=== PATIENT | male | born 1960 | race Caucasian/White ===

== ENCOUNTER 2021-06-09 02:16 | Emergency (ER) | payer BC ==
[~2021-06-09] VITALS: Ht 180.3 cm; Wt 85.0 kg
[2021-06-09 07:50] LABS: BASOPHILS # (AUTO) 0.1 X10'3 (0-0.2); BASOPHILS % (AUTO) 0.6 % (0-1); EOSINOPHILS # (AUTO) 0.1 X10'3 (0-0.9); HEMATOCRIT 44.8 % (42.0-52.0); HEMOGLOBIN 15.1 g/dl (14.0-17.9); LYMPHOCYTES % (AUTO) 21.9 % (21-51); MEAN CORPUSCULAR HEMOGLOBIN 32.1 PG (27.0-31.0); MEAN CORPUSCULAR HGB CONC 33.7 g/dL (33.0-36.5); MEAN CORPUSCULAR VOLUME 95.1 FL (78-98); MEAN PLATELET VOLUME 8.4 FL (7.4-10.4); MONOCYTES # (AUTO) 0.7 X10'3 (0-0.9); MONOCYTES % (AUTO) 7.2 % (2-12); NEUTROPHILS # (AUTO) 6.4 X10'3 (1.8-7.7); NEUTROPHILS % (AUTO) 69.3 % (42-75); PLATELET COUNT 276 X10'3 (140-440); RED BLOOD COUNT 4.71 X10'6 (4.70-6.10); RED CELL DISTRIBUTION WIDTH 13.7 % (11.5-14.5); WHITE BLOOD COUNT 9.2 X10'3 (4.5-11.0)
[2021-06-09 07:56] LABS: ALANINE AMINOTRANSFERASE 30 U/L (12-78); ALBUMIN/GLOBULIN RATIO 1.3 (1.1-1.5); ALKALINE PHOSPHATASE 93 IU/L (46-116); ANION GAP 12 (8-16); ASPARTATE AMINO TRANSFERASE 21 U/L (10-37); BILIRUBIN,TOTAL 0.4 MG/DL (0.1-1.0); BLOOD UREA NITROGEN 11 MG/DL (7-18); BUN/CREATININE RATIO 13.4 (5.4-32.0); CALCIUM 8.9 MG/DL (8.5-10.1); CHLORIDE 106 MMOL/L (99-107); CREATININE 0.82 MG/DL (0.60-1.10); GLUCOSE 109 MG/DL (70-104); LIPASE 112 U/L (73-393); POTASSIUM 3.9 MMOL/L (3.5-5.1); SODIUM 142 MMOL/L (135-145); TOTAL CARBON DIOXIDE 24.3 MMOL/L (24-32); TOTAL PROTEIN 7.2 G/DL (6.4-8.2); eGFR > 90 ML/MIN
[2021-06-09] MEDS ORDERED: FAMO40TA59 PO (08:10)
[2021-06-09 08:24] VITALS: BP 139/100
== END 2021-06-09 08:28 | disposition home or self-care (01) ==
LOC: ER 02:17
DX: R10.13 Epigastric pain (principal); F17.210 Nicotine dependence, cigarettes, uncomplicated
CPT/HCPCS: 36415; 80053; 83690; 85025; 93005; 99284

== ENCOUNTER 2023-04-15 17:15 | Emergency (ER) | payer BC ==
[~2023-04-15 17:15] MED LIST: FAMO40TA59 PO; epiNEPHrine 0.1mg/ml 10ml syringe ONE; etomidate 2mg/ml inj. ONE; sod chloride 0.9% 10ml flush syringe IV ONE; sodium bicarbonate (8.4%) 1 mEq/ml syringe ONE
--- NOTE | 2023-04-15 17:16 | NUR ---
PT ARRIVED VIA EMS TO ER 6; PULSE CHECK WITH US BY DR JACKSON, NO PULSE NOTED 1722: 0.1MG EPI GIVEN IV 172: PT INTUBATED WITH 8.0 ETT, 25CM AT THE TEETH 20MG ETOMIDATE GIVEN IV 172: PULSE CHECK VIA US BY DR WOODS; TRACE CARDIAC PERFUSION NOTED. 1730: ETT PULLED BACK 1CM TO 24CM AT THE TEETH
--- NOTE | 2023-04-15 17:34 | NUR ---
EPI 0.1MG GIVEN IV. 1743 NOREPI GIVEN AT 1743 FOR BP 40/18
[2023-04-15 17:40] VITALS: BP 38/19
[2023-04-15] MEDS ORDERED: heparin 10,000 units/1 ML INJ IV ONE (17:40)
[2023-04-15] MEDS ORDERED: heparin 25,000 UNIT/250ml bag 250 ML IV PRN (17:40)
[2023-04-15] MEDS ORDERED: NORepinephrine 8mg/ 250ml NS 250 ML IV SCH (17:40)
[2023-04-15] MEDS ORDERED: heparin 10,000 units/1 ML INJ IV PRN (17:40)
[2023-04-15 17:50] LABS: BASOPHILS # (AUTO) 0.1 X10'3 (0-0.2); BASOPHILS % (AUTO) 0.8 % (0-1); EOSINOPHILS # (AUTO) 0.2 X10'3 (0-0.9); EOSINOPHILS % (AUTO) 1.9 % (0-6); HEMATOCRIT 29.3 % (42.0-52.0); HEMOGLOBIN 8.9 g/dl (14.0-17.9); LYMPHOCYTES # (AUTO) 4.5 X10'3 (1.1-4.8); LYMPHOCYTES % (AUTO) 45.6 % (21-51); MEAN CORPUSCULAR HEMOGLOBIN 31.3 PG (27.0-31.0); MEAN CORPUSCULAR HGB CONC 30.5 g/dL (33.0-36.5); MEAN CORPUSCULAR VOLUME 102.7 FL (78-98); MEAN PLATELET VOLUME 8.5 FL (7.4-10.4); MONOCYTES # (AUTO) 0.5 X10'3 (0-0.9); MONOCYTES % (AUTO) 5.3 % (2-12); NEUTROPHILS # (AUTO) 4.5 X10'3 (1.8-7.7); NEUTROPHILS % (AUTO) 46.4 % (42-75); PLATELET COUNT 152 X10'3 (140-440); RED BLOOD COUNT 2.86 X10'6 (4.70-6.10); RED CELL DISTRIBUTION WIDTH 15.1 % (11.5-14.5); WHITE BLOOD COUNT 9.8 X10'3 (4.5-11.0)
[2023-04-15 18:00] VITALS: BP 41/16
[2023-04-15] MEDS ORDERED: midazolam 100mg in NS 100ml 100 ML IV PRN (18:00)
--- NOTE | 2023-04-15 18:02 | NUR ---
PER MD HOLD THE HEPARIN DRIP AT THIS TIME ,ADMIN WHEN THE X RAY RESULTS ARE BACK.
--- NOTE | 2023-04-15 18:06 | NUR ---
INFORMED THE MD THAT PT RECEIVED TOTAL OF 3L N.S IV FLUID DURING CODE.
[2023-04-15 18:17] LABS: ALANINE AMINOTRANSFERASE 188 U/L (12-78); ALBUMIN 2.1 G/DL (3.4-5.0); ALBUMIN/GLOBULIN RATIO 1.1 (1.1-1.5); ALKALINE PHOSPHATASE 84 IU/L (46-116); ANION GAP 28 (8-16); ASPARTATE AMINO TRANSFERASE 183 U/L (10-37); BILIRUBIN,TOTAL 0.1 MG/DL (0.1-1.0); BLOOD UREA NITROGEN 12 MG/DL (7-18); BUN/CREATININE RATIO 7.7 (10.0-20.0); CALCIUM 8.7 MG/DL (8.5-10.1); CHLORIDE 109 MMOL/L (99-107); CREATININE 1.55 MG/DL (0.60-1.10); GLUCOSE 211 MG/DL (70-104); POTASSIUM 4.5 MMOL/L (3.5-5.1); SODIUM 149 MMOL/L (135-145); eGFR 46 ML/MIN
[2023-04-15 18:20] LABS: TOTAL CARBON DIOXIDE 11.9 MMOL/L (24-32)
[2023-04-15 18:35] LABS: APTT 92 SECONDS (22-32)
--- NOTE | 2023-04-15 18:39 | NUR ---
COMPRESSIONS 1838 EPI 1839 BICARB 1840 BICARB 1841
[2023-04-15 18:42] LABS: MAGNESIUM 2.6 MG/DL (1.5-2.4)
--- NOTE | 2023-04-15 18:46 | NUR ---
REGISTRATION FOUND A CART ON PT DATED [birth year]09[birth year] WITH NEXT OF KIN LISTED "LORI" PHONE# [phone]. ATTEMPTED TO CALL [facility], UNABLE TO LEAVE A MESSAGE DUE TO VOICE MAIL BOX BEING FULL. DR JACKSON NOTIFIED
[2023-04-15] MEDS ORDERED: vasopressin inj. 40 UNIT in normal saline 50ml IV soln 38 ML IV SCH (18:50)
[2023-04-15] MEDS ORDERED: vasopressin inj. 40 UNIT in dextrose 5%-water 50ml 38 ML IV SCH (18:50)
[2023-04-15] MEDS ORDERED: sodium bicarbonate (8.4%) inj. 1 MEQ/ML ML ONE ×2 (18:54→18:55)
[2023-04-15 19:01] LABS: ETHANOL < 0.010 GM/DL (0.0-0.010)
[2023-04-15 19:10] LABS: NUCLEATED RED BLOOD CELLS 3 /100WBC (0-0); PLATELET ESTIMATE NORMAL; TOTAL CELLS COUNTED 100
--- NOTE | 2023-04-15 19:10 | NUR ---
LATE ENTRY :PT HAD ORDER FOR HEPARIN BOLUS AND INFUSION BUT PER DR BRIDGES AND DR GOMEZ VERBAL ORDER NOT TO ADMIN HEPARIN ,PT BP REMAINED IN LOW 40'S SYSTOLIC EVEN ON THE LEVOPHED DRIP MD BRIDGES AWARE ALSO MADE DR GOMEZ ICU INTENTIVIST AWARE TOO. DR GOMEZ CAME TO ER AROUND 1800 PM APRIL 15 ASSESSED THE PT ALSO INFORMED MD THAT PT BP REMAINED IN LOW 40'S SYSTOLIC AND HR IN 36 -40 DR BRIDGES WAS AWARE ,ASKED IF WE SHD GIVE ATROPINE BUT DR BRIDGES STATED ITS NOTED NEEDED.
[2023-04-15 19:11] LABS: BURR CELLS FEW
[2023-04-15 19:18] LABS: SMUDGE CELLS 1+
--- NOTE | 2023-04-15 19:42 | NUR ---
MESSAGE LEFT WITH FOCUSER'S OFFICE [address] [place] [employer] CALLED 1942
--- NOTE | 2023-04-15 19:49 | NUR ---
DONOR NETWORK STATES PT MAY BE CANDIDATE FOR TISSUE DONATION, WILL CALL THIS RN BACK
--- NOTE | 2023-04-15 20:42 | NUR ---
DONOR NETWORK STATES PT SEEMS SUITABLE FOR POSSIBLE TISSUE DONATION. THEY WILL FOLLOW UP
--- NOTE | 2023-04-15 20:48 | NUR ---
ATTEMPTED TO CALL [facility] "LORI" NO ANSWER, UNABLE TO LEAVE MESSAGE
--- NOTE | 2023-04-15 20:50 | NUR ---
CALL PLACED TO [facility] TO ARRANGE FOR PU OF THE PT.
--- NOTE | 2023-04-16 15:35 | NUR ---
FAMILY PHONE NUMBERS RETRIEVED FROM HOSPITAL COMPUTER SYSTEM. ATTEMPTED TO CALL MOTHER, LORI FRANKS AT . NO ANSWER ON PHONE AND NO OPTION TO LEAVE A MESSAGE. ATTEMPTED TO CALL BROTHER, NANCY FRANKS AT AND PHONE IS NOT IN SERVICE.
--- NOTE | 2023-04-16 16:30 | NUR ---
TC TO [facility] IN [place]. ADDITIONAL [facility] IN[facility], INCLUDING MOTHER'S PHONE NUMBER, PATIENT'S HOME ADDRESS, AND PATIENT'S WORK PLACE AND PHONE NUMBER.
== END 2023-04-15 22:06 ==
LOC: MERGE 17:16 → ER 17:16 → EDBD 17:16 → ER 22:06
DX: I46.9 Cardiac arrest, cause unspecified (principal); R00.0 Tachycardia, unspecified
CPT/HCPCS: 31500; 36415; 36556; 71045; 80053; 80320; 82800; 83605; 83735; 83880; 84443; 84484; 85007; 85025; 85610; 85730; 87070; 92950; 93005; 93308; 94002; 94640; 99291; 99292; J0171; J3490; 51702; 94760; C1758